=== PATIENT | male | born 1940 | race Caucasian/White ===

== ENCOUNTER 2023-03-24 02:02 | Day surgery (SDC) | payer MEDICARE, SELFPAY ==
[2023-03-17 11:12] VITALS: BMI 32.0
--- NOTE | 2023-03-17 11:28 | PC.NURSE ---
Report to the Outpatient Waiting Room, entrance under the green pavilion located off [facility], at time __1000 on date __03/24/23 . Planned Procedure Time: ___1200 . Time changes happen often and if your time is changed the preop area will call you the afternoon before. - You and your visitor will be asked to self-screen and do not enter if you have any COVID symptoms. - A mask is optional within the hospital at this time. Patients may have clear liquids (water, carbonated beverages, clear teas, apple juice) until 3 hours prior to surgery (0900 AM) with a maximum of 20 ounces. - No food from midnight until time of surgery - Infants may have breast milk until 4 hours before surgery, infant formula 6 hours prior to surgery. - Children will be allowed to drink immediately following surgery. If applicable, please bring a bottle or sippy cup to assist with drinking. Juice, water, soda, and popsicles are readily available. For infants on formula, please bring formula the day of surgery. Pacifiers are allowed. Take the following medications with a SIP of water the morning of surgery: ___TYLENOL DO NOT STOP ANY OF YOUR OTHER PRESCRIPTION MEDICATIONS PRIOR TO SURGERY ?EXCEPT THE FOLLOWING Medications to discontinue per DR. DIEGO - _ELIQUIS 2 DAYS PRIOR (PER PT), Date to take last dose 03/21/23__ Please no make-up, nail danish, hairspray, perfume, deodorant, or body powder the day of surgery. No jewelry (including any body piercings) or valuables the day of surgery, leave them at home. Please take a shower or bath the night before, or the morning of, surgery with an antibacterial soap. Wear comfortable, loose fitting clothing. Children are encouraged to wear pajamas. - Jewelry must be removed prior to entering the operating room. Rings and piercings that are not removed may be cut off. - The hospital will not accept responsibility for valuables. - Please leave all valuables, including medications, at home the day of surgery. If you are going home after surgery, a licensed tanker truck driver must drive you home. - NO public transportation without another adult if you receive anesthesia. - We recommend that an adult stay with you for 24 hours following discharge. - We also recommend that you do not drive, make important decision, drink alcoholic beverages, or take any drugs that were not prescribed by your health care provider for at least 24 hours after your discharge time. For Pediatric surgeries, we recommend two adults accompany the child home. Follow any additional instructions given to you from your surgeon. If you or anyone in your household have experienced Covid symptoms in the past week, please notify your surgeon or the nurse liaison at the phone number below for possible testing. Telephone instructions given to ___PATIENT and asked if any additional questions and then verbalized understanding. Patient advised to call surgeon office or pre surgery nurse liaison [phone] if any additional questions.
[2023-03-24] VITALS (7 sets, daily range): BP systolic 110–169; BP diastolic 66–102; PULSE 65–85; RESP 14–18; TEMP 36.2–36.8; O2SAT 99–100
--- NOTE | 2023-03-24 07:35 | ECG_ITS ---
Measurements Intervals [place] Rate: 74 P: NV: 0 QRS: -29 QRSD: 74 T: 31 QT: 386 QTc: 430 Interpretive Statements ATRIAL FIBRILLATION BORDERLINE LEFT AXIS DEVIATION [QRS AXIS < -20] LOW QRS VOLTAGE IN PRECORDIAL LEADS [QRS DEFLECTION < 1.0 mV IN CHEST LEADS] ABNORMAL RHYTHM ECG NO PREVIOUS ECG AVAILABLE FOR COMPARISON Electronically Signed On 03-24-2023 15:04:26 CDT by Marvin Bird M.D.
--- NOTE | 2023-03-24 11:53 | WPDANESEPPF ---
Anes - Initial Pre Proc Eval Procedure: Operation Date: 03/24/23 13:00 Proposed Procedures p Cystoscopy,Laser Of Bladder Stones - Erik Ricardo MD Date/Time: 03/24/23 11:53 Surgeon: Erik Ricardo MD Pre Op Diagnosis: bladder stone Patient Data Age: 82 Gender: M Height: 1.73 m Weight: 95 kg Last Vital Signs Temp 36.2 C L 03/24/23 11:07 Pulse 85 03/24/23 11:07 Resp 18 03/24/23 11:07 BP 155/102 H 03/24/23 11:07 Pulse Ox 100 03/24/23 11:07 O2 Del Method Room Air 03/24/23 11:07 Allergies Allergy/AdvReac Type Severity Reaction Status Date / Time No Known Allergies Allergy Verified 03/24/23 11:18 Home Medications Medication Instructions Recorded Confirmed Type acetaminophen 650 mg 1,300 mg PO Q12H 03/17/23 03/24/23 History tablet,extended release apixaban 5 mg tablet (Eliquis) 5 mg PO BID 03/17/23 03/24/23 History atorvastatin 20 mg tablet 20 mg HS 03/17/23 03/24/23 History cyanocobalamin (vitamin B-12) 500 500 mcg PO DAILY 03/17/23 03/24/23 History mcg tablet finasteride 5 mg tablet 5 mg HS 03/17/23 03/24/23 History tamsulosin 0.4 mg capsule 0.4 mg PO HS 03/17/23 03/24/23 History Patient hx anesthesia problems: none Family hx anesthesia problems: none Results Review: All pre-operative results and documents have been reviewed as part of the pre-operative evaluation. [facility] Past Medical History Medical History (Updated 03/24/23 @ 11:53 by Charly Colvin MD) Chronic a-fib Surgical History Surgical History (Updated 03/24/23 @ 11:54 by Charly Colvin MD) History of lumbar surgery Social History Social History Smoking status: Never smoker Second hand tobacco smoke exposure: No Alcohol intake: current Alcohol use details: STATES RARE BEER EVERY NOW AND THEN Substance use: never Substance use type: does not use Living arrangements: with family Spiritual care concerns: No Anes - Eval Final PreProcedure Day of Procedure 03/24/23 11:53 Patient weight: overweight Heart: regular rate and rhythm Lungs: clear to auscultation Airway: Mallampati scale class II Neurological: alert and oriented Last oral intake: >/= 8 hours ASA classification: III Emergent: no Anesthetic plan: proceed Anesthesia type and monitoring: general LMA and standard monitoring Results Review: All pre-operative results and documents have been reviewed as part of the pre-operative evaluation. Informed Consent: The patient's anesthetic plan and its attendant risks and benefits were discussed with the patient/family/POA. Questions were solicited and answers provided to the satisfaction of the patient/family/POA.
--- NOTE | 2023-03-24 12:00 | WPDHPUPDATE1 ---
History and Physical Update Update Date/Time: 03/24/23 12:00 History and Physical has been reviewed, including an updated exam of the patient. There are NO changes in the patient's condition. Risks, benefits, and alternatives have been discussed and questions answered. Patient agrees to proceed with procedure. Proceed with cystoscopy, laser bladder stone.
[2023-03-24] MEDS: ceFAZolin 2 GM/D5W 50 ML 2 GM/50 ML BAG IVPB (12:18)
[2023-03-24] MEDS: LIDOCAINE HCL 2% GEL UROJET 10 ML PKG MUCOUS MEM (12:41)
--- NOTE | 2023-03-24 12:46 | W.PM.PROC2 ---
Procedure Note - Detailed Date of Procedure 03/24/23 Pre-op Diagnosis bladder stone Post-op Diagnosis Same Procedure Performed Holmium laser of bladder stone 13 mm Surgeon Erik Ricardo MD Anesthesia General Description of Procedure Patient is taken to the operative suite correctly identified. Once anesthesia was obtained was placed in dorsal lithotomy position and prepped and draped usual sterile fashion. Twenty-two Setswana scope was inserted the bladder. The stone was visualized. Using a holmium laser fiber we fragmented the stone multiple small pieces and these were sent for analysis. Reinspection revealed read no residual stones. 2% viscous lidocaine was inserted into the urethra. Patient is taken recovery stable condition. This completes dictation please send a copy this op note to my office Estimated Blood Loss 0 Drains No Packing No Pathology Yes Complications No immediate complications Condition Stable Disposition PACU
[2023-03-24] MEDS: LACTATED RINGERS 1,000 ML 30 ML IV CONT (12:49)
== END 2023-03-24 14:30 | disposition home or self-care (01) ==
PROVIDERS: PCP Family Medicine; Visit Provider Urology
PROC: 0TCB8ZZ Extirpation of Matter from Bladder, Via Natural or Artificial Opening Endoscopic (ICD-10-PCS; CPT 52352; principal; 2023-03-24 13:00)
DX: N21.0 Calculus in bladder (principal); I48.20 Chronic atrial fibrillation, unspecified; Z79.01 Long term (current) use of anticoagulants
CPT/HCPCS: 52317; 82365; 88300; 93005; C1758; J0690; J1100; J2405; J2704; J3010; J7120